=== PATIENT | female | born 1980 | race Caucasian/White ===

== ENCOUNTER 2017-09-30 19:01 | Emergency (ER) | payer MEDICAID, OTHER ==
[~2017-09-30] VITALS: Ht 160 cm; Wt 75.0 kg
[~2017-09-30 19:01] MED LIST: ALBU6.7H INH; ALBU8HFA PO; AZIT250T27 PO; BECL7.3A INH; CYCL-1 PO; PRED50TA PO
[2017-09-30] MEDS ORDERED: TETanus/Pertussis (Acell)/Diphther VAC/PF (Tdap-Adult) 0.5ml syringe IM ONE (20:20)
[2017-09-30] MEDS ORDERED: ibuprofen 200mg tablet PO ONE (20:35)
[2017-09-30 21:07] VITALS: BP 144/88
== END 2017-09-30 21:14 ==
LOC: EEVIPCON 19:02 → ER 19:02
DX: S00.432A Contusion of left ear, initial encounter (principal); F17.200 Nicotine dependence, unspecified, uncomplicated; J45.909 Unspecified asthma, uncomplicated; Z88.5 Allergy status to narcotic agent; Z88.1 Allergy status to other antibiotic agents; Z79.899 Other long term (current) drug therapy; Y04.0XXA Assault by unarmed brawl or fight, initial encounter; Y93.89 Activity, other specified; Y92.89 Other specified places as the place of occurrence of the external cause; Y99.8 Other external cause status
CPT/HCPCS: 70450; 72125; 90471; 90715; 99284

== ENCOUNTER 2018-07-13 17:28 | Emergency (ER) | payer OTHER ==
[~2018-07-13] VITALS: Ht 160 cm; Wt 75.0 kg
[2018-07-13 18:01] VITALS: BP 134/88
[2018-07-13] MEDS ORDERED: AMOX-422 PO (20:18)
[2018-07-13] MEDS ORDERED: amox tr/potassium clavulanate 875/125mg TAB PO ONE (20:20)
[2018-07-13] MEDS ORDERED: ondansetron 4mg rapidly disintigrating tab PO ONE (20:20)
--- NOTE | 2018-07-13 20:49 | NUR ---
Pt has filled out the dog bite form. I will fax it and place it in her chart.
== END 2018-07-13 20:53 | disposition home or self-care (01) ==
LOC: ER 17:28
DX: S61.451A Open bite of right hand, initial encounter (principal); J45.909 Unspecified asthma, uncomplicated; Z98.890 Other specified postprocedural states; Z88.1 Allergy status to other antibiotic agents; Z79.899 Other long term (current) drug therapy; W54.0XXA Bitten by dog, initial encounter; Y93.89 Activity, other specified; Y92.89 Other specified places as the place of occurrence of the external cause; Y99.8 Other external cause status
CPT/HCPCS: 99283

== ENCOUNTER 2021-08-26 17:41 | Emergency (ER) | payer MEDICAID ==
[~2021-08-26] VITALS: Ht 160 cm; Wt 82.7 kg
[~2021-08-26 17:41] MED LIST changes: -ALBU6.7H INH; +ALBU6.7H9 INH
[2021-08-26 17:53] VITALS: BP 143/102
--- NOTE | 2021-08-26 18:03 | NUR ---
PT REFUSED TO FILE THE REPORT .PT STATED SHE WON'T DISCLOSE THE BOYFRIEND'S NAME.
== END 2021-08-26 19:09 | disposition home or self-care (01) ==
LOC: ER 17:42
DX: S70.211A Abrasion, right hip, initial encounter (principal); S80.211A Abrasion, right knee, initial encounter; S90.511A Abrasion, right ankle, initial encounter; S80.811A Abrasion, right lower leg, initial encounter; S50.311A Abrasion of right elbow, initial encounter; Y04.0XXA Assault by unarmed brawl or fight, initial encounter; Y93.89 Activity, other specified; Y92.89 Other specified places as the place of occurrence of the external cause; Y99.8 Other external cause status
CPT/HCPCS: 72170; 99283

== ENCOUNTER 2022-07-30 11:08 | Inpatient (IN) | payer MEDICAID ==
[~2022-07-30] VITALS: Ht 160 cm; Wt 79.5 kg
[~2022-07-30 11:08] MED LIST changes: +ALBU6.7H14 INH; -ALBU6.7H9 INH
[2022-07-30] MEDS ORDERED: simethicone 125mg capsule PO ONE (12:30)
[2022-07-30] MEDS ORDERED: ondansetron/PF 4mg/2ml inj IV ONE (12:30)
[2022-07-30] MEDS ORDERED: pantoprazole 40 MG vial IV ONE (12:30)
[2022-07-30] MEDS ORDERED: simethicone 125mg capsule PO SCH (12:30)
[2022-07-30] MEDS ORDERED: normal saline 1000ML IV soln IVB ONE ×2 (12:30)
[2022-07-30 12:49] LABS: BASOPHILS % (AUTO) 0.3 % (0-1); EOSINOPHILS # (AUTO) 0.1 X10'3 (0-0.9); EOSINOPHILS % (AUTO) 0.7 % (0-6); HEMATOCRIT 40.6 % (35.0-45.0); HEMOGLOBIN 13.6 g/dl (12.0-16.0); LYMPHOCYTES % (AUTO) 6.8 % (21-51); MEAN CORPUSCULAR HGB CONC 33.4 g/dL (33.0-36.5); MEAN CORPUSCULAR VOLUME 107.6 FL (78-98); MEAN PLATELET VOLUME 9.2 FL (7.4-10.4); MONOCYTES # (AUTO) 0.4 X10'3 (0-0.9); NEUTROPHILS # (AUTO) 12.8 X10'3 (1.8-7.7); NEUTROPHILS % (AUTO) 89.2 % (42-75); PLATELET COUNT 134 X10'3 (140-440); RED BLOOD COUNT 3.77 X10'6 (4.20-5.60); RED CELL DISTRIBUTION WIDTH 15.3 % (11.5-14.5); WHITE BLOOD COUNT 14.3 X10'3 (4.5-11.0)
[2022-07-30 12:58] LABS: ALANINE AMINOTRANSFERASE 32 U/L (12-78); ALBUMIN 2.9 G/DL (3.4-5.0); ALBUMIN/GLOBULIN RATIO 0.7 (1.1-1.5); ALKALINE PHOSPHATASE 91 IU/L (46-116); ANION GAP 7 (8-16); ASPARTATE AMINO TRANSFERASE 57 U/L (10-37); BLOOD UREA NITROGEN 13 MG/DL (7-18); BUN/CREATININE RATIO 19.1 (10.0-20.0); CALCIUM 10.3 MG/DL (8.5-10.1); CHLORIDE 99 MMOL/L (99-107); CREATININE 0.68 MG/DL (0.40-0.90); GLUCOSE 89 MG/DL (70-104); LIPASE 871 U/L (73-393); SODIUM 138 MMOL/L (135-145); eGFR > 90 ML/MIN
[2022-07-30] MEDS ORDERED: potassium Cl 40MEQ/1/2NS 520ml 520 ML IV ONE (13:35)
[2022-07-30 13:41] LABS: CLARITY,URINE SLIGHTLY CLOUDY (Clear); GLUCOSE, URINE NEGATIVE (Neg); KETONES,URINE 40 mg/dl (Neg); LEUKOCYTE ESTERASE ,URINE NEGATIVE (Neg); NITRITES, URINE NEGATIVE (Neg); OCCULT BLOOD,URINE TRACE-INTACT (Neg); PROTEIN,URINE 100 mg/dl (Neg); UROBILINOGEN,URINE 0.2 E.U/dL (0.2-1.0)
[2022-07-30] MEDS ORDERED: pantoprazole 40 MG/NS 100ML add-vantage BAG IV ONE (13:41)
[2022-07-30 13:42] LABS: URINE HCG NEGATIVE (NEG)
[2022-07-30 13:47] LABS: COLOR,URINE AMBER (Yellow); UA COLLECTION TYPE CLN CATCH MIDSTREAM
[2022-07-30 13:48] LABS: BACTERIA,URINE FEW /HPF (Neg); FINE GRANULAR CAST 0-3 /LPF (NEGATIVE); MUCUS STRANDS MANY /LPF (Neg); RBC,URINE 0-2 /HPF (0-2); SQUAMOUS EPITHELIAL CELL,UR MODERATE /LPF (FEW); WBC,URINE 0-4 /HPF (0-4)
[2022-07-30] MEDS ORDERED: HYDROmorphone inj. 0.5 MG/0.5 ML DISP.SYRIN IV ONE (13:55)
[2022-07-30] MEDS ORDERED: acetaminophen 325mg tablet PO PRN (14:10)
[2022-07-30] MEDS ORDERED: HYDROcodone/acetaminophen 5mg/325mg tablet PO PRN (14:10)
[2022-07-30] MEDS ORDERED: magnesium hydroxide 30ml (MOM) UD suspension PO PRN (14:10)
[2022-07-30] MEDS ORDERED: ondansetron/PF 4mg/2ml inj IV PRN (14:10)
[2022-07-30] MEDS ORDERED: mag hydrox/Alum hydrox/simeth 30ml oral suspension PO PRN (14:10)
[2022-07-30] MEDS ORDERED: metoclopramide 5 mg/ml inj IV PRN (14:10)
[2022-07-30] MEDS ORDERED: morphine 2 MG/ML inj. syringe IV PRN (14:10)
[2022-07-30] MEDS ORDERED: iohexol 300mg/ml 100ml inj. ONE (14:13)
[2022-07-30 14:28] LABS: PHOSPHORUS 3.3 MG/DL (2.3-4.5)
[2022-07-30] MEDS: dextrose 5%-1/2 normal saline 1,000 ML IV SCH (16:11)
[2022-07-30] MEDS ORDERED: NO HOME MEDS (16:20)
[2022-07-30] MEDS: docusate sod 100mg capsule PO SCH (20:09)
[2022-07-30] MEDS: morphine 2 MG/ML inj. syringe IV PRN (20:27)
[2022-07-31] MEDS: dextrose 5%-1/2 normal saline 1,000 ML IV SCH ×2 (00:10→09:16)
[2022-07-31 01:56] LABS: BASOPHILS % (AUTO) 0.2 % (0-1); EOSINOPHILS # (AUTO) 0.4 X10'3 (0-0.9); EOSINOPHILS % (AUTO) 3.3 % (0-6); HEMATOCRIT 35.8 % (35.0-45.0); HEMOGLOBIN 11.8 g/dl (12.0-16.0); LYMPHOCYTES # (AUTO) 1.3 X10'3 (1.1-4.8); LYMPHOCYTES % (AUTO) 11.3 % (21-51); MEAN CORPUSCULAR HEMOGLOBIN 35.6 PG (27.0-31.0); MEAN CORPUSCULAR HGB CONC 32.9 g/dL (33.0-36.5); MEAN CORPUSCULAR VOLUME 108.1 FL (78-98); MEAN PLATELET VOLUME 9.7 FL (7.4-10.4); MONOCYTES # (AUTO) 0.3 X10'3 (0-0.9); NEUTROPHILS # (AUTO) 9.4 X10'3 (1.8-7.7); NEUTROPHILS % (AUTO) 82.2 % (42-75); PLATELET COUNT 101 X10'3 (140-440); RED BLOOD COUNT 3.31 X10'6 (4.20-5.60); RED CELL DISTRIBUTION WIDTH 15.5 % (11.5-14.5); WHITE BLOOD COUNT 11.4 X10'3 (4.5-11.0)
[2022-07-31 02:07] LABS: ALANINE AMINOTRANSFERASE 23 U/L (12-78); ALBUMIN 2.4 G/DL (3.4-5.0); ALBUMIN/GLOBULIN RATIO 0.7 (1.1-1.5); ALKALINE PHOSPHATASE 74 IU/L (46-116); ANION GAP 7 (8-16); ASPARTATE AMINO TRANSFERASE 33 U/L (10-37); BILIRUBIN,TOTAL 0.7 MG/DL (0.1-1.0); BLOOD UREA NITROGEN 8 MG/DL (7-18); BUN/CREATININE RATIO 15.4 (10.0-20.0); CALCIUM 8.6 MG/DL (8.5-10.1); CHLORIDE 102 MMOL/L (99-107); CHOL/HDL RATIO 1.6 (0.00-4.99); CHOLESTEROL 131 MG/DL (0-200); CREATININE 0.52 MG/DL (0.40-0.90); GLUCOSE 91 MG/DL (70-104); HDL CHOLESTEROL 84 MG/DL (35-60); LDL CHOLESTEROL 34 MG/DL (50-100); SODIUM 137 MMOL/L (135-145); TOTAL CARBON DIOXIDE 28.3 MMOL/L (24-32); TOTAL PROTEIN 5.9 G/DL (6.4-8.2); TRIGLYCERIDES 50 MG/DL (20-135); eGFR > 90 ML/MIN
[2022-07-31] MEDS ORDERED: potassium Cl 40MEQ/1/2NS 520ml 520 ML IV PRN (02:20)
[2022-07-31] MEDS ORDERED: potassium Cl 20 mEq SR tablet PO PRN (02:20)
[2022-07-31] MEDS ORDERED: magnesium 4gm in 100ml NS 100 ML IV PRN (02:20)
[2022-07-31] MEDS: morphine 2 MG/ML inj. syringe IV PRN (02:36)
[2022-07-31] MEDS: potassium Cl 20 mEq SR tablet PO PRN ×3 (02:41→11:41)
[2022-07-31 03:45] LABS: MAGNESIUM 0.9 MG/DL (1.5-2.4)
[2022-07-31] MEDS: magnesium Cl slow-release 64mg tablet PO PRN ×2 (06:09→17:09)
--- NOTE | 2022-07-31 07:02 | NUR ---
Patient in room ED 14. I have received report from Geno and had the opportunity to ask questions and assume patient care.
[2022-07-31 07:05] VITALS: BP 153/114
[2022-07-31 08:00] VITALS: BP 156/104
[2022-07-31] MEDS: docusate sod 100mg capsule PO SCH (08:00)
[2022-07-31] MEDS ORDERED: enoxaparin 40mg/0.4ml syringe SUBCUT SCH (08:00)
--- NOTE | 2022-07-31 08:05 | NUR ---
RE: [facility] in [address], pt has morphine allergy, morphine made her ill this am, pt requesting different IV pain med, please advise Paulina
[2022-07-31] MEDS: HYDROcodone/acetaminophen 10/325mg tab PO PRN ×2 (09:16→16:00)
[2022-07-31 10:00] VITALS: BP 131/90
--- NOTE | 2022-07-31 12:28 | NUR ---
Student documentation:Chelsea escobar [facility] have reviewed and agree with all interventions, medication administration per hospital policy, and assessments performed and documented by the student.
[2022-07-31] MEDS ORDERED: ONDA4TAB12 PO (17:00)
[2022-07-31] MEDS ORDERED: HYDR-3965 PO (17:00)
--- NOTE | 2022-07-31 18:06 | NUR ---
Reviewed discharge instructions with patient. Patient verbalized understanding. Patient is alert, oriented and expresses a readiness to discharge home with family. Family member was able to fern picker patient's meds at the pharmacy prior to picking patient up. Patient was accompanied downstairs and out to the front of the hospital where family will drive her home.
== END 2022-07-31 18:05 | disposition home or self-care (01) | DRG 282 ==
LOC: ER 11:08 → ED HOLD 14:14 → EDBEDREQ 07-31 00:43 → SUR 3N 07-31 07:15
PROVIDERS: ADMIT Internal Medicine; ATTEND Internal Medicine
PROC: BW211ZZ Computerized Tomography (CT Scan) of Abdomen and Pelvis using Low Osmolar Contrast (ICD-10-PCS; principal; 2022-07-30)
DX: K85.20 Alcohol induced acute pancreatitis without necrosis or infection (principal); E87.6 Hypokalemia; J45.909 Unspecified asthma, uncomplicated; F17.200 Nicotine dependence, unspecified, uncomplicated; Z88.1 Allergy status to other antibiotic agents; Z88.5 Allergy status to narcotic agent; Z98.891 History of uterine scar from previous surgery; Z79.899 Other long term (current) drug therapy
CPT/HCPCS: 36415; 74177; 80053; 80061; 81001; 81025; 83690; 83735; 84100; 85025; 87081; 99285; C9113; G0378; J1170; J2270; J2405; J3480; J3490; J7030; J7040; Q9967